=== PATIENT | male | born 1980 | race Caucasian/White ===

== ENCOUNTER 2021-08-06 07:48 | Emergency (ER) | payer SELFPAY ==
[~2021-08-06] VITALS: Ht 167.6 cm; Wt 116.1 kg
[2021-08-06 07:56] VITALS: BP 134/83
[2021-08-06 10:28] VITALS: BP 130/79
== END 2021-08-06 10:28 | disposition home or self-care (01) ==
LOC: MED 07:48
DX: R25.1 Tremor, unspecified (principal)
CPT/HCPCS: 93005; 99283